=== PATIENT | female | born 1970 | race Caucasian/White ===

== ENCOUNTER 2024-08-10 08:52 | Emergency (ER) | payer OTHER ==
[2024-08-10 09:00] VITALS: BP 131/82; PULSE 95; RESP 16; TEMP 98.2; BMI 26.9
[2024-08-10] MEDS ORDERED: ACETAMINOPHEN INJECTION 100 ML ONE (09:59)
[2024-08-10 10:24] LABS: BASO % 0.7 % (0-2.0); EOS % 0.6 % (0-4.5); HEMATOCRIT 40.7 % (32.4-45.2); HEMOGLOBIN 13.5 GM/dL (10.7-15.3); MCHC 33.1 g/dl (32.0-36.0); MEAN CELL VOLUME 84.7 fl (80-96); MEAN PLT VOLUME 9.8 fl (7.5-11.1); MONO % 9.4 % (3.8-10.2); NEUT % 58.3 % (42.8-82.8); PLATELET COUNT 262 10^3/uL (134-434); RDW 14.2 % (11.6-15.6); WHITE BLOOD COUNT 6.7 K/mm3 (4.0-10.0)
[2024-08-10 10:29] LABS: PH,URINE 6.5 (5.0-8.0); URINE APPEARANCE CLEAR; URINE BILIRUBIN NEGATIVE (NEGATIVE); URINE COLOR YELLOW; URINE GLUCOSE (UA) NEGATIVE (NEGATIVE); URINE KETONE NEGATIVE (NEGATIVE); URINE LEUK ESTERASE NEGATIVE (NEGATIVE); URINE NITRITE NEGATIVE (NEGATIVE); URINE PROTEIN NEGATIVE (NEGATIVE); URINE UROBILINOGEN 0.2 mg/dL (0.2-1.0)
[2024-08-10 10:47] LABS: POTASSIUM 4.1 mmol/L (3.5-5.1)
[2024-08-10 10:49] LABS: CALCIUM 8.9 mg/dL (8.5-10.1)
[2024-08-10] MEDS: SODIUM CHLORIDE 1,000 ML IV STA (10:49)
[2024-08-10] MEDS: ACETAMINOPHEN 1000 MG/100 ML BAG IVPB ONE (10:49)
[2024-08-10 10:51] LABS: ALBUMIN 3.4 g/dl (3.4-5.0); BLOOD UREA NITROGEN 10.4 mg/dL (7-18)
[2024-08-10 10:53] LABS: CREATININE 0.6 mg/dL (0.55-1.3)
[2024-08-10 10:54] LABS: BILIRUBIN,TOTAL 0.4 mg/dL (0.2-1)
[2024-08-10 10:55] LABS: TOT PROT 7.9 g/dl (6.4-8.2)
[2024-08-10] MEDS ORDERED: FAMOTIDINE 20 MG/50 ML IVPB 20 MG/50 ML MG IVPB ONE (10:58)
[2024-08-10] MEDS: FAMOTIDINE 20 MG/50 ML IVPB 20 MG/50 ML MG IVPB ONE (11:25)
== END 2024-08-10 15:37 | disposition home or self-care (01) ==
LOC: JER 08:52
PROC: 3E033GC Introduction of Other Therapeutic Substance into Peripheral Vein, Percutaneous Approach (ICD-10-PCS; principal; 2024-08-10)
PROC: 3E033NZ Introduction of Analgesics, Hypnotics, Sedatives into Peripheral Vein, Percutaneous Approach (ICD-10-PCS; 2024-08-10)
PROC: 3E0337Z Introduction of Electrolytic and Water Balance Substance into Peripheral Vein, Percutaneous Approach (ICD-10-PCS; 2024-08-10)
DX: K21.9 Gastro-esophageal reflux disease without esophagitis (principal); R10.11 Right upper quadrant pain; R10.31 Right lower quadrant pain; R10.32 Left lower quadrant pain
CPT/HCPCS: 36415; 71046-TC-FY; 74177-TC; 76705-TC; 80053; 81003; 83690; 84484; 85025; 87086; 87186; 93005; 93010; 99285-25; J0131; Q9967

== ENCOUNTER 2024-08-21 19:58 | Emergency (ER) | payer OTHER ==
[2024-08-21 20:08] VITALS: BMI 24.4
[2024-08-21 22:44] LABS: BASO % 1.3 % (0-2.0); EOS % 0.7 % (0-4.5); HEMATOCRIT 36.7 % (32.4-45.2); HEMOGLOBIN 12.4 GM/dL (10.7-15.3); LYMPH % 35.1 % (8-40); MCH 28.1 pg (25.7-33.7); MCHC 33.8 g/dl (32.0-36.0); MEAN CELL VOLUME 83.1 fl (80-96); MEAN PLT VOLUME 9.8 fl (7.5-11.1); MONO % 8.9 % (3.8-10.2); PLATELET COUNT 251 10^3/uL (134-434); RBC 4.41 M/mm3 (3.60-5.2); RDW 14.5 % (11.6-15.6); WHITE BLOOD COUNT 10.7 K/mm3 (4.0-10.0)
[2024-08-21] MEDS ORDERED: ONDANSETRON 4 MG/2 ML VIAL ONE ×2 (22:56→22:57)
[2024-08-21] MEDS ORDERED: FAMOTIDINE 20 MG/50 ML IVPB 20 MG/50 ML MG IVPB ONE (22:56)
[2024-08-21 22:57] LABS: POTASSIUM 3.2 mmol/L (3.5-5.1)
[2024-08-21 22:59] LABS: CALCIUM 8.3 mg/dL (8.5-10.1)
[2024-08-21 23:00] LABS: ALBUMIN 3.3 g/dl (3.4-5.0); BLOOD UREA NITROGEN 9.5 mg/dL (7-18)
[2024-08-21] MEDS ORDERED: ACETAMINOPHEN INJECTION 100 ML ONE (23:00)
[2024-08-21 23:03] LABS: CREATININE 0.4 mg/dL (0.55-1.3)
[2024-08-21 23:04] LABS: BILIRUBIN,TOTAL 0.2 mg/dL (0.2-1); TOT PROT 7.6 g/dl (6.4-8.2)
[2024-08-21] MEDS: FAMOTIDINE 20 MG/50 ML IVPB 20 MG/50 ML MG IVPB ONE (23:07)
[2024-08-21] MEDS: ONDANSETRON 4 MG/2 ML VIAL IVPUSH ONE (23:07)
[2024-08-21] MEDS: ACETAMINOPHEN 1000 MG/100 ML BAG IVPB ONE (23:07)
[2024-08-21 23:11] LABS: PH,URINE 6.5 (5.0-8.0); URINE APPEARANCE CLEAR; URINE BILIRUBIN NEGATIVE (NEGATIVE); URINE COLOR YELLOW; URINE GLUCOSE (UA) NEGATIVE (NEGATIVE); URINE KETONE NEGATIVE (NEGATIVE); URINE LEUK ESTERASE NEGATIVE (NEGATIVE); URINE NITRITE NEGATIVE (NEGATIVE); URINE PROTEIN NEGATIVE (NEGATIVE)
[2024-08-21 23:56] LABS: HIV INTERPRETATION NEGATIVE (NEGATIVE)
[2024-08-22] MEDS: POTASSIUM CHLORIDE TABS 20 MEQ TABLET.ER (FP) PO ONE (01:50)
[2024-08-22 02:59] VITALS: BP 138/69; PULSE 68; RESP 16; TEMP 98
== END 2024-08-22 04:40 | disposition home or self-care (01) ==
LOC: JER 19:58
PROC: 3E033GC Introduction of Other Therapeutic Substance into Peripheral Vein, Percutaneous Approach (ICD-10-PCS; principal; 2024-08-21)
PROC: 3E033GC Introduction of Other Therapeutic Substance into Peripheral Vein, Percutaneous Approach (ICD-10-PCS; 2024-08-21)
PROC: 3E033NZ Introduction of Analgesics, Hypnotics, Sedatives into Peripheral Vein, Percutaneous Approach (ICD-10-PCS; 2024-08-21)
DX: R10.13 Epigastric pain (principal); R10.31 Right lower quadrant pain; R10.32 Left lower quadrant pain; R42 Dizziness and giddiness; R00.2 Palpitations; R30.0 Dysuria; Z20.822 Contact with and (suspected) exposure to COVID-19
CPT/HCPCS: 0241U-QW; 36415; 71046-TC-FY; 74177-TC; 80053; 81003; 82550; 84443; 84484; 85025; 86803; 87086; 87389; 93005; 93010; 99285-25; J0131

== ENCOUNTER 2024-08-30 15:02 | Emergency (ER) | payer OTHER ==
[2024-08-30 15:06] VITALS: BP 113/78; PULSE 81; RESP 18; TEMP 98.6; BMI 26.5
[2024-08-30] MEDS ORDERED: FAMOTIDINE 10 MG/ML VIAL IVPB ONE (15:55)
[2024-08-30] MEDS ORDERED: ACETAMINOPHEN INJECTION 100 ML ONE (15:55)
[2024-08-30] MEDS ORDERED: ONDANSETRON 4 MG/2 ML VIAL ONE (15:55)
[2024-08-30] MEDS ORDERED: MAG HYDROX/AL HYDROX/SIMETH 30 ML UNIT-DOSE CUP ONE (15:55)
[2024-08-30] MEDS: SODIUM CHLORIDE 0.9% 500 ML INFUS.BAG IV ONE (16:20)
[2024-08-30] MEDS: FAMOTIDINE 20 MG/50 ML IVPB 20 MG/50 ML MG IVPB ONE (16:20)
[2024-08-30] MEDS: ACETAMINOPHEN 1000 MG/100 ML BAG IVPB ONE (16:20)
[2024-08-30] MEDS: MAG HYDROX/AL HYDROX/SIMETH 30 ML UNIT-DOSE CUP PO ONE (16:20)
[2024-08-30] MEDS: ACETAMINOPHEN 500 MG TABLET (FP) PO ONE (16:21)
[2024-08-30] MEDS: ONDANSETRON *ODT* 4 MG TABLET SL ONE (16:21)
[2024-08-30] MEDS: FAMOTIDINE 20 MG TABLET PO ONE (16:21)
[2024-08-30] MEDS: ONDANSETRON 4 MG/2 ML VIAL IVPUSH ONE (16:21)
[2024-08-30] MEDS: SUCRALFATE 1 GM TABLET (FP) PO ONE (16:22)
[2024-08-30] MEDS ORDERED: FAMOTIDINE 20 MG TABLET ONE (16:23)
[2024-08-30] MEDS ORDERED: ONDANSETRON *ODT* 4 MG TABLET ONE (16:23)
[2024-08-30] MEDS ORDERED: SUCRALFATE 1 GM TABLET (FP) ONE (16:24)
[2024-08-30] MEDS ORDERED: ACETAMINOPHEN 325 MG TABLET (FP) ONE (16:24)
[2024-08-30 18:27] LABS: URINE APPEARANCE CLEAR; URINE BILIRUBIN NEGATIVE (NEGATIVE); URINE COLOR YELLOW; URINE GLUCOSE (UA) NEGATIVE (NEGATIVE); URINE KETONE NEGATIVE (NEGATIVE); URINE LEUK ESTERASE NEGATIVE (NEGATIVE); URINE NITRITE NEGATIVE (NEGATIVE); URINE PROTEIN NEGATIVE (NEGATIVE); URINE UROBILINOGEN 0.2 mg/dL (0.2-1.0)
== END 2024-08-30 20:00 | disposition left against medical advice (07) ==
LOC: JER 15:02
PROC: 3E033GC Introduction of Other Therapeutic Substance into Peripheral Vein, Percutaneous Approach (ICD-10-PCS; principal; 2024-08-30)
DX: K21.9 Gastro-esophageal reflux disease without esophagitis (principal); R10.13 Epigastric pain; R10.11 Right upper quadrant pain
CPT/HCPCS: 76705-TC; 81003; 87086; 87186; 99284-25; Q0162